=== PATIENT | female | born 1985 | race Caucasian/White ===

== ENCOUNTER 2016-11-12 07:06 | Inpatient (IN) | payer OTHER ==
[2016-11-12 07:53] LABS: BILIRUBIN NEGATIVE (NEGATIVE); BLOOD 2+ Ery/uL (NEGATIVE); CLARITY CLEAR (CLEAR); COLOR YELLOW (YELLOW); GLUCOSE (U) NORMAL (NORMAL); KETONE (U) NEGATIVE (NEGATIVE); LEUKOCYTES 3+ Leu/uL (NEGATIVE); NITRITE NEGATIVE (NEGATIVE); PROTEIN NEGATIVE (NEGATIVE); SPECIFIC GRAVITY <=1.005 (1.001-1.030); UROBILINOGEN 0.2 mg/dL (0.2-1.0)
[2016-11-12 08:01] LABS: BACTERIA 4+; MUCOUS TRACE; URINARY WBC 20-50
[2016-11-12 12:50] LABS: HCT 35.8 % (37.0-47.0); HGB 12.6 g/dl (12.5-16.0); MCH 31.5 pg (25.0-31.0); MCHC 35.2 g/dL (32.0-36.0); MCV 89.5 fL (78.0-100.0); MPV 9.2 fL (6.0-9.5); RDW 12.3 % (11.5-14.0); WBC 20.9 K/uL (4.0-10.5)
[2016-11-13 06:27] LABS: HCT 32.7 % (37.0-47.0); HGB 11.5 g/dl (12.5-16.0); MCHC 35.2 g/dL (32.0-36.0); MCV 91.1 fL (78.0-100.0); MPV 8.9 fL (6.0-9.5); RBC 3.59 M/uL (4.20-5.40); RDW 12.2 % (11.5-14.0); WBC 16.8 K/uL (4.0-10.5)
== END 2016-11-14 18:12 | disposition home or self-care (01) | DRG 775 ==
LOC: FOD 07:06 → FOB 07:08 → FOD 11:45 → FOB 11:47
PROVIDERS: ADMIT Obstetrics & Gynecology
PROC: 10E0XZZ Delivery of Products of Conception, External Approach (ICD-10-PCS; principal; 2016-11-12)
PROC: 0KQM0ZZ Repair Perineum Muscle, Open Approach (ICD-10-PCS; 2016-11-12)
PROC: 4A1HX4Z Monitoring of Products of Conception, Cardiac Electrical Activity, External Approach (ICD-10-PCS; 2016-11-12)
DX: O99.214 Obesity complicating childbirth (principal); E66.9 Obesity, unspecified; O70.1 Second degree perineal laceration during delivery; Z3A.39 39 weeks gestation of pregnancy; Z37.0 Single live birth; F12.10 Cannabis abuse, uncomplicated; R82.5 Elevated urine levels of drugs, medicaments and biological substances; Z87.891 Personal history of nicotine dependence; Z56.0 Unemployment, unspecified; K59.00 Constipation, unspecified; F31.9 Bipolar disorder, unspecified
CPT/HCPCS: 36415; 81001; 88307; J2405; J2795